=== PATIENT | female | born 1960 | race Caucasian/White ===

== ENCOUNTER 2020-05-03 09:20 | Outpatient (CLI) | payer SELFPAY ==
[~2020-05-03 09:20] MED LIST: CYCL-394 PO; LANTUS SQ; LEVO175T52 PO; LIRA0.6P SQ
== END 2020-05-03 23:59 | disposition home or self-care (01) ==
LOC: HW VAS 09:20
DX: Z13.6 Encounter for screening for cardiovascular disorders (principal)